=== PATIENT | female | born 1990 | race American Indian/Alaskan Native ===

== ENCOUNTER 2017-01-25 21:01 | Emergency (ER) | payer OTHER ==
[2017-01-25 21:47] VITALS: BP 109/46
[2017-01-25 22:45] LABS: Hematocrit 40.2 % (30.3-42.9); Hemoglobin 13.2 gm/dl (10.1-14.3); Mean Corpuscular HGB Conc 33 % (30-34); Mean Corpuscular Hemoglobin 32 pg (28-32); Mean Corpuscular Volume 98 fl (79-97); Platelet Count 351 K/mm3 (140-440); Red Blood Count 4.09 M/mm3 (3.65-5.03); White Blood Count 13.1 K/mm3 (4.5-11.0)
[2017-01-25 22:54] LABS: Blood Urea Nitrogen 12 mg/dL (7-17); Calcium 9.6 mg/dL (8.4-10.2); Carbon Dioxide 22 mmol/L (22-30); Glucose 87 mg/dL (65-100)
[2017-01-25 22:55] LABS: Anion Gap 22 mmol/L; Sodium 140 mmol/L (137-145)
[2017-01-26] MEDS: TYLENOL PO ONE (00:48)
== END 2017-01-26 07:00 | disposition left against medical advice (07) ==
LOC: ED 21:01
DX: R10.2 Pelvic and perineal pain (principal); Z53.21 Procedure and treatment not carried out due to patient leaving prior to being seen by health care provider
CPT/HCPCS: 36415; 80048; 84702; 85027; 86900; 86901

== ENCOUNTER 2017-09-04 15:13 | Emergency (ER) | payer SELFPAY ==
[2017-09-04 15:56] VITALS: BP 129/80
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
[2017-09-04 17:36] LABS: HCG Qualitative,Urine Negative (Negative)
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
== END 2017-09-04 19:50 | disposition home or self-care (01) ==
LOC: ED 15:13
DX: S16.1XXA Strain of muscle, fascia and tendon at neck level, initial encounter (principal); S96.912A Strain of unspecified muscle and tendon at ankle and foot level, left foot, initial encounter; F17.200 Nicotine dependence, unspecified, uncomplicated; F12.10 Cannabis abuse, uncomplicated; Z88.6 Allergy status to analgesic agent; Y04.2XXA Assault by strike against or bumped into by another person, initial encounter; Y93.89 Activity, other specified; Y99.8 Other external cause status; Y92.511 Restaurant or cafe as the place of occurrence of the external cause
CPT/HCPCS: 72040; 81025; 99283